=== PATIENT | female | born 1980 | race Hispanic/Latino ===

== ENCOUNTER 2022-04-21 23:18 | Emergency (ER) | payer OTHER ==
[~2022-04-21] VITALS: Ht 154.9 cm; Wt 81.4 kg
[2022-04-21 23:22] VITALS: BP 135/63
[2022-04-22] MEDS ORDERED: AMOX1TAB16 PO (00:14)
== END 2022-04-22 00:22 | disposition home or self-care (01) ==
LOC: EDH 23:18
DX: S81.851A Open bite, right lower leg, initial encounter (principal); W54.0XXA Bitten by dog, initial encounter; Y99.8 Other external cause status; Y93.89 Activity, other specified; Y92.89 Other specified places as the place of occurrence of the external cause